=== PATIENT | female | born 1945 | race Caucasian/White ===

== ENCOUNTER 2018-10-03 13:23 | Inpatient (IN) | payer MEDICARE, OTHER ==
[2016-02-18 16:32] VITALS: Wt 117.9 kg
[~2018-10-03 13:23] MED LIST: ALB17R INH; ALB18R INH; ASP81 PO; ASPI-1441 PO; ASPI-1471 PO; ASPI-757 PO; AZI250 PO; B12/1CAP PO; CALC600T59 PO; CHOL200018 PO; EPIN5DRO OP; GUALA600 PO; HCTZ25 PO; IBUP200C74 PO; IBUP50TA PO; LISI-374 PO; LOR7.5/325 PO; MOM PO; MULT-1 PO; OLOOD OP; OXYC-865 PO; PRE20 PO; TETR15DR9 OP; TRA50 PO; TRAM-420 PO; WARF-12 PO; [UNRECOGNIZED DRUG - CODE] PO; [UNRECOGNIZED DRUG - CODE] PO
--- NOTE | 2018-10-03 13:32 | ER Report ---
History and Physical Time Seen By MD: 13:31 HPI/ROS CHIEF COMPLAINT: Shortness of breath HISTORY OF PRESENT ILLNESS: This is a 73-year-old female presents to emergency department for dyspnea. Patient states that over the last 3 days she's had i ncreased shortness of breath. She does have a history of well-controlled asthma however the last 3 days she's been using her rescue inhaler more frequently, significant shortness of breath last night and today. Patient is working hard to breathe, supraclavicular retractions, intercostal retractions, speaking in 2-3 word sentences. She denies smoking, is currently being worked up for COPD. No history of congestive heart failure that she is aware of. No fevers, but has had chills the last couple days. No nausea or vomiting. Denies chest pain. No rashes or meningismus. REVIEW OF SYSTEMS: Constitutional: No fever, no chills. Eyes: No discharge. ENT: No sore throat. Cardiovascular: No chest pain, no palpitations. Respiratory: As above. Gastrointestinal: No abdominal pain, no vomiting. Genitourinary: No hematuria. Musculoskeletal: No back pain. Skin: No rashes. Neurological: No headache. Allergies: Coded Allergies: crab (Verified Allergy, Severe, ANAPHYLAXIS, 03/02/16) Penicillins (Verified Allergy, Mild, ANAPHYLAXIS, 03/02/16) levofloxacin (Verified Allergy, Mild, HIVES, 03/02/16) Home Meds Active Scripts Aspirin (ASPIR 81) 81 Mg Tablet.dr, 81 MG PO QDAY, #30 TAB May resume when completed with the 30 days of full dose (325mg) aspirin. Prov:JUANA CALLAHAN MD 02/20/16 Lisinopril (LISINOPRIL) 40 Mg Tablet, 40 MG PO QDAY, #30 TAB DO NOT TAKE until discuss BP readings with Dr. Mcgarry in approximately one week. Check BP 2-3 times daily and keep record. Prov:JUANA CALLAHAN MD 02/20/16 Reported Medications Levothyroxine Sodium (SYNTHROID) 75 Mcg Tablet, 75 MG DAILY 10/03/18 Fluticasone/Salmeterol (ADVAIR 250-50 DISKUS) 1 Each Disk.w.dev, BID 10/03/18 Epinephrine (EPIPEN 2-FRANCHESKA) 0.3 Mg/0.3 Ml Pen.injctr 10/03/18 Atorvastatin Calcium (ATORVASTATIN CALCIUM) 10 Mg Tablet, HS 10/03/18 Hydrochlorothiazide (HYDROCHLOROTHIAZIDE) 12.5 Mg Capsule, 1 TAB PO QDAY, CAPSULE 10/03/18 Epinastine Hcl (EPINASTINE HCL) 5 Ml Drops, 5 ML OP BID instill one drop in each eye twice daily 02/17/16 Cholecalciferol (Vitamin D3) (VITAMIN D) 2,000 Unit Tablet, 2000 UNIT PO DAILY 02/12/16 Tramadol Hcl (TRAMADOL HCL) 50 Mg Tablet, 50 MG PO Q6-8H PRN for PAIN, TAB 02/12/16 Albuterol Sulfate (VENTOLIN HFA) 18 Gm Inh, 2 PUFF INH Q4-6H PRN for CONGESTION, INH 02/12/16 Discontinued Reported Medications Oxycodone Hcl/Acetaminophen (PERCOCET 5-325 MG TABLET) 1 Each Tablet, 1-2 TAB PO Q4-6H PRN for PAIN, #90 TAB 0 Refills 02/20/16 Discontinued Scripts Aspirin (ASPIRIN) 325 Mg Tablet, 325 MG PO QHS, #30 TAB Prov:JUANA CALLAHAN MD 02/20/16 Past Medical/Surgical History Patient has a past medical and surgical history of hypertension, asthma, pneumonia, colonoscopy,, disease, cholecystectomy, breast cancer, breast biopsy, postpolio syndrome and right leg, arthritis, wears glasses, hypothyroidism, knee surgery, hysterectomy, left total hip, bilateral total knee, tonsillectomy retina repair. Reviewed Nurses Notes: Yes Hx Smoking: No Smoking Status: Never Smoker Exposure to Second Hand Smoke?: No Hx Substance Use Disorder: No Hx Alcohol Use: No Constitutional Vital Sign - Last 24 Hours 10/03/18 10/03/18 10/03/18 10/03/18 13:23 13:33 13:38 13:38 Temp 98.4 Pulse ??? 82 87 Resp 30 30 B/P (MAP) 155/95 (115) 155/95 Pulse Ox 76 93 O2 Delivery Nasal Cannula 10/03/18 10/03/18 10/03/18 10/03/18 13:45 13:45 13:53 13:56 Pulse 78 85 Resp 20 22 Pulse Ox 98 97 O2 Delivery Oxy Mask O2 Flow Rate 5.0 6.0 10/03/18 10/03/18 10/03/18 10/03/18 14:08 14:23 14:28 14:43 Pulse 87 90 86 91 Resp 16 Pulse Ox 97 93 91 91 10/03/18 10/03/18 10/03/18 10/03/18 14:53 14:58 15:00 15:13 Pulse 90 90 Resp 15 19 B/P (MAP) 148/73 (98) 131/80 (97) Pulse Ox 92 83 10/03/18 10/03/18 10/03/18 10/03/18 15:28 15:30 15:43 15:58 Pulse 85 89 88 Resp 13 18 15 B/P (MAP) 139/82 (101) Pulse Ox 92 91 89 10/03/18 16:00 B/P (MAP) 142/90 (107) Physical Exam General Appearance: The patient is alert, has no immediate need for airway protection and no signs of toxicity, supra-clavicular and intercostal retractions, increased work of breathing, to 3 word sentences. Eyes: Pupils equal and round no pallor or injection. ENT, Mouth: Mucous membranes are moist. Respiratory: Supraclavicular and intercostal retractions, diminished lung sounds throughout, and expiratory wheezes in the left upper and lower lung espinoza. Cardiovascular: Regular rate and rhythm, no murmurs, clicks or rubs. Gastrointestinal: Abdomen is round, soft and non tender, no masses, bowel sounds normal. Neurological: Alert and oriented 4. Moving all extremities. Following all commands. No focal neuro deficits. Skin: Warm and dry, no rashes. Musculoskeletal: Neck is supple non tender. Extremities are nontender, nonswollen and have full range of motion. DIFFERENTIAL DIAGNOSIS: After history and physical exam differential diagnosis was considered for shortness of breath including but not limited to pulmonary infectious process, COPD, asthma, pulmonary embolus and congestive heart failure. Medical Decision Making Data Points Result Diagram: 10/03/18 1348 10/03/18 1348 Laboratory Hematology Test 10/03/18 13:48 10/03/18 16:00 Red Blood Count 4.58 M/uL (4.17-5.56) Mean Corpuscular Volume 86.2 fL (80.0-96.0) Mean Corpuscular Hemoglobin 27.7 pg (26.0-33.0) Mean Corpuscular Hemoglobin Concent 32.2 g/dL (32.0-36.0) Red Cell Distribution Width 15.3 % (11.5-14.5) Mean Platelet Volume 7.3 fL (7.2-11.1) Neutrophils (%) (Auto) 75.6 % (39.4-72.5) Lymphocytes (%) (Auto) 12.9 % (17.6-49.6) Monocytes (%) (Auto) 7.2 % (4.1-12.4) Eosinophils (%) (Auto) 3.5 % (0.4-6.7) Basophils (%) (Auto) 0.8 % (0.3-1.4) Nucleated RBC Relative Count (auto) 0.0 /100WBC Neutrophils # (Auto) 4.6 K/uL (2.0-7.4) Lymphocytes # (Auto) 0.8 K/uL (1.3-3.6) Monocytes # (Auto) 0.4 K/uL (0.3-1.0) Eosinophils # (Auto) 0.2 K/uL (0.0-0.5) Basophils # (Auto) 0.0 K/uL (0.0-0.1) Nucleated RBC Absolute Count (auto) 0.00 K/uL Sodium Level 136 mmol/L (137-145) Potassium Level 3.7 mmol/L (3.5-5.0) Chloride Level 95 mmol/L (98-107) Carbon Dioxide Level 36 mmol/L (22-31) Blood Urea Nitrogen 19 mg/dl (7-18) Creatinine 0.80 mg/dl (0.52-1.04) Glomerular Filtration Rate Calc > 60.0 Random Glucose 101 mg/dl (75-110) Calcium Level 9.5 mg/dl (8.4-10.2) Total Bilirubin 0.9 mg/dl (0.2-1.3) Aspartate Amino Transf (AST/SGOT) 47 U/L (0-35) Alanine Aminotransferase (ALT/SGPT) 38 U/L (0-56) Alkaline Phosphatase 95 U/L (0-126) Troponin I < 0.012 ng/ml B-Type Natriuretic Peptide 8 pg/ml (0-100) Total Protein 7.1 g/dl (6.3-8.2) Albumin 4.2 g/dl (3.5-5.0) Influenza Virus Type A (PCR) Negative (NEGATIVE) Influenza Virus Type B (PCR) Negative (NEGATIVE) Chemistry Test 10/03/18 13:48 10/03/18 16:00 White Blood Count 6.0 k/uL (4.5-11.0) Red Blood Count 4.58 M/uL (4.17-5.56) Hemoglobin 12.7 g/dL (12.0-16.0) Hematocrit 39.5 % (34.0-47.0) Mean Corpuscular Volume 86.2 fL (80.0-96.0) Mean Corpuscular Hemoglobin 27.7 pg (26.0-33.0) Mean Corpuscular Hemoglobin Concent 32.2 g/dL (32.0-36.0) Red Cell Distribution Width 15.3 % (11.5-14.5) Platelet Count 193 K/uL (150-450) Mean Platelet Volume 7.3 fL (7.2-11.1) Neutrophils (%) (Auto) 75.6 % (39.4-72.5) Lymphocytes (%) (Auto) 12.9 % (17.6-49.6) Monocytes (%) (Auto) 7.2 % (4.1-12.4) Eosinophils (%) (Auto) 3.5 % (0.4-6.7) Basophils (%) (Auto) 0.8 % (0.3-1.4) Nucleated RBC Relative Count (auto) 0.0 /100WBC Neutrophils # (Auto) 4.6 K/uL (2.0-7.4) Lymphocytes # (Auto) 0.8 K/uL (1.3-3.6) Monocytes # (Auto) 0.4 K/uL (0.3-1.0) Eosinophils # (Auto) 0.2 K/uL (0.0-0.5) Basophils # (Auto) 0.0 K/uL (0.0-0.1) Nucleated RBC Absolute Count (auto) 0.00 K/uL Glomerular Filtration Rate Calc > 60.0 Calcium Level 9.5 mg/dl (8.4-10.2) Total Bilirubin 0.9 mg/dl (0.2-1.3) Aspartate Amino Transf (AST/SGOT) 47 U/L (0-35) Alanine Aminotransferase (ALT/SGPT) 38 U/L (0-56) Alkaline Phosphatase 95 U/L (0-126) Troponin I < 0.012 ng/ml B-Type Natriuretic Peptide 8 pg/ml (0-100) Total Protein 7.1 g/dl (6.3-8.2) Albumin 4.2 g/dl (3.5-5.0) Influenza Virus Type A (PCR) Negative (NEGATIVE) Influenza Virus Type B (PCR) Negative (NEGATIVE) EKG/Imaging EKG Interpretation 12 lead EKG: Time of EKG 1343. Rhythm: Normal sinus rhythm, ventricular rate 77 bpm. Maddock: normal QRS: normal ST segments: No ST depression or elevation identified, inverted T-wave in lead 3 and V2. When compared to the 04/12/2014 EKG no significant changes other than inverted T wave on the current EKG in lead 3 and V1 and V2 Imaging Location: [facility] Patient: Audrey Rizzo : 1945 Visit/Account:[id number] Date of Sevice: 10/03/2018 Exam type: CHEST SINGLE AP History: Respiratory distress Comparison: 02/06/2016. Findings: Lung volumes are low. Prominent interstitial markings are noted bilaterally worst at the bases could represent an interstitial pneumonia. No focal infiltrate, pleural effusion or pneumothorax. Heart size is normal. Pulmonary arteries are enlarged, unchanged. Osseous structures are unremarkable. IMPRESSION: 1. Low lung volumes was prominent interstitial markings particularly at the bases could represent an interstitial pneumonia. Report Dictated By: Wilson Quigley MD at 10/03/2018 2:23 PM Report E-Signed By: Wilson Quigley MD at 10/03/2018 2:24 PM WSN:[email or web address] ED Course/Re-evaluation Clinical Indication for ER IV: Hydration, IV Access ED Course The patient was admitted to room. A history and physical were obtained. Differential diagnoses were considered. An IV was started. A CBC, CMP, troponin were obtained. EKG showing sinus rhythm. CBC unremarkable, chemistry showing sodium 136, Chloride 95, CO2 36, BUN 19, negative troponin, normal BNP, negative influenza. A single view chest x-ray concerning for pneumonia. Patient did receive 3 continuous DuoNeb was with significant relief of her symptoms and improved aeration. However on room air the patient's oxygen did desaturate to 77%. I did discuss the case with Dr. Mick Lora the hospitalist [facility], he is accepting the patient in the hospitalist services for community-acquired pneumonia and hypoxia. Patient was agreeable with this plan of care, admitted to the medical floor. Patient was started on antibiotics once she was admitted. 10/03/2018 3:29:28 pm I did speak with Dr. Alanna Lora the hospitalist, he will come to evaluate the patient for possible admit. Another room air trial off oxygen after 3 duo nebs, 77%. 10/03/2018 3:55:02 pm the patient has been accepted into the hospitalist services, patient will be admitted to Dr. Gonzalez for community-acquired pneumonia and hypoxia. Decision to Disposition Date: Oct 03, 2018 Decision to Disposition Time: 15:55 Depart Departure Latest Vital Signs Vital Signs Date Time Temp Pulse Resp B/P (MAP) Pulse Ox O2 Delivery O2 Flow Rate FiO2 10/03/18 16:00 142/90 (107) 10/03/18 15:58 88 15 89 10/03/18 13:56 6.0 10/03/18 13:45 Oxy Mask 10/03/18 13:38 98.4 Impression: Primary Impression: Community acquired pneumonia Additional Impressions: Asthma attack Hypoxia Condition: Improved Disposition: Admitted from ER Referrals: KAYLIE MCGARRY MD (PCP) Problem Qualifiers Primary Impression: Community acquired pneumonia Laterality: unspecified laterality Qualified Codes: J18.9 - Pneumonia, unspecified organism Additional Impressions: Asthma attack Asthma severity: moderate Asthma persistence: unspecified Qualified Codes: J45.901 - Unspecified asthma with (acute) exacerbation MIRACLE SY ASSISTANT TO THE VICE PRESIDENT-BC Oct 03, 2018 13:32
[2018-10-03] MEDS ORDERED: NS(*) 0.9% 500 ML BAG 500 ML IV ONE (13:37)
[2018-10-03] MEDS ORDERED: methylPREDNIS SUCC 125 MG/2ML IVP ONE (13:40)
[2018-10-03] MEDS ORDERED: ATOR10TA65 (13:49)
[2018-10-03] MEDS ORDERED: EPIN0.3P15 (13:49)
[2018-10-03] MEDS ORDERED: FLUT1DIS28 (13:49)
[2018-10-03] MEDS ORDERED: HYDR12.556 PO (13:49)
[2018-10-03 13:59] LABS: PLATELET COUNT, AUTOMATED 193 K/uL (150-450)
[2018-10-03] MEDS: ALBUTEROL/IPRATROPIUM 3 ML NEB NEB SCH ×2 (13:59→17:23)
--- NOTE | 2018-10-03 14:30 | RADIOLOGY IMAGING REPORT ---
[facility] PATIENT NAME: Audrey Rizzo : 1945 MR: [id number] V: [id number] EXAM DATE: ORDERING PHYSICIAN: MIRACLE SY TECHNOLOGIST: Location: [facility] Patient: Audrey Rizzo : 1945 Visit/Account:[id number] Date of Sevice: 10/03/2018 Exam type: CHEST SINGLE AP History: Respiratory distress Comparison: 02/06/2016. Findings: Lung volumes are low. Prominent interstitial markings are noted bilaterally worst at the bases could represent an interstitial pneumonia. No focal infiltrate, pleural effusion or pneumothorax. Heart size is normal. Pulmonary arteries are enlarged, unchanged. Osseous structures are unremarkable. IMPRESSION: 1. Low lung volumes was prominent interstitial markings particularly at the bases could represent an interstitial pneumonia. Report Dictated By: Wilson Quigley MD at 10/03/2018 2:23 PM Report E-Signed By: Wilson Quigley MD at 10/03/2018 2:24 PM WSN:[email or web address]
--- NOTE | 2018-10-03 14:31 | EKG ---
FACILITY: [facility] [place] PATIENT NAME: ABELARDO MACHADO : [id number] MR: [id number] V: [id number] EXAM DATE: [id number] ORDERING PHYSICIAN: MIRACLE SY TECHNOLOGIST: JUVENCIO Test Reason : SOB Blood Pressure : / mmHG Vent. Rate : 077 BPM Atrial Rate : 077 BPM P-R Int : 184 ms QRS Dur : 102 ms QT Int : 398 ms P-R-T Axes : 017 058 -03 degrees QTc Int : 450 ms Normal sinus rhythm R wave progression consistent with an old ant/sep [place] vs lead placement T inversion/flattening consistent with inf ischemia vs normal variant When compared with ECG of 12-APR-2014 05:53, ST no longer elevated in Inferior leads T wave inversion now evident in Inferior leads T wave amplitude has increased in Lateral leads Confirmed by NEHEMIAS DE OLIVEIRA ([id number]) on 10/03/2018 4:25:45 PM Referred By: DAISHA Confirmed By:NEHEMIAS DE OLIVEIRA
[2018-10-03] MEDS ORDERED: LEVO75TA68 (15:47)
--- NOTE | 2018-10-03 16:42 | History & Physical ---
History of Present Illness History of Present Illness 73yo female with a h/o asthma who came to the ER for worsening SOB. She developed chills, non-productive cough and SOB about a week ago. She usually just wears O2 at night and put herself on 2 liters daily, which helped her SOB. She used her albuterol inhaler frequently, which also helped. However, the SOB worsened. She has slept in a chair the last 3 nights. Last night, she didn't sleep well secondary to the SOB, so came to the ER. She denies n/v/diarrhea/cp. She has had some LE edema over the last couple of days. She has been out of Advair for 2 weeks. In the ER, she was given a DuoNeb and methylprednisolone and feels a bit better. History Problems: (1) Chronic leg pain Status: Chronic (2) Hyperlipemia Status: Chronic (3) Nocturnal hypoxemia Status: Chronic (4) Asthma Status: Chronic (5) Dry eyes Status: Chronic (6) Hypothyroidism Status: Chronic (7) HTN (hypertension) Status: Chronic Home Meds Active Scripts Aspirin (ASPIR 81) 81 Mg Tablet.dr, 81 MG PO QDAY, #30 TAB May resume when completed with the 30 days of full dose (325mg) aspirin. Prov:JUANA CALLAHAN MD 02/20/16 Lisinopril (LISINOPRIL) 40 Mg Tablet, 40 MG PO QDAY, #30 TAB DO NOT TAKE until discuss BP readings with Dr. Arauz in approximately one week. Check BP 2-3 times daily and keep record. Prov:JUANA CALLAHAN MD 02/20/16 Reported Medications Levothyroxine Sodium (SYNTHROID) 75 Mcg Tablet, 75 MG DAILY 10/03/18 Fluticasone/Salmeterol (ADVAIR 250-50 DISKUS) 1 Each Disk.w.dev, BID 10/03/18 Epinephrine (EPIPEN 2-FRANCHESKA) 0.3 Mg/0.3 Ml Pen.injctr 10/03/18 Atorvastatin Calcium (ATORVASTATIN CALCIUM) 10 Mg Tablet, HS 10/03/18 Hydrochlorothiazide (HYDROCHLOROTHIAZIDE) 12.5 Mg Capsule, 1 TAB PO QDAY, CAPSULE 10/03/18 Epinastine Hcl (EPINASTINE HCL) 5 Ml Drops, 5 ML OP BID instill one drop in each eye twice daily 7/12/16 Cholecalciferol (Vitamin D3) (VITAMIN D) 2,000 Unit Tablet, 2000 UNIT PO DAILY 02/12/16 Tramadol Hcl (TRAMADOL HCL) 50 Mg Tablet, 50 MG PO Q6-8H PRN for PAIN, TAB 02/12/16 Albuterol Sulfate (VENTOLIN HFA) 18 Gm Inh, 2 PUFF INH Q4-6H PRN for CONGESTION, INH 02/12/16 Discontinued Reported Medications Oxycodone Hcl/Acetaminophen (PERCOCET 5-325 MG TABLET) 1 Each Tablet, 1-2 TAB PO Q4-6H PRN for PAIN, #90 TAB 0 Refills 02/20/16 Discontinued Scripts Aspirin (ASPIRIN) 325 Mg Tablet, 325 MG PO QHS, #30 TAB Prov:JUANA CALLAHAN MD 02/20/16 Allergies: Coded Allergies: crab (Verified Allergy, Severe, ANAPHYLAXIS, 03/02/16) Penicillins (Verified Allergy, Mild, ANAPHYLAXIS, 03/02/16) levofloxacin (Verified Allergy, Mild, HIVES, 03/02/16) Patient History: FH: CABG (coronary artery bypass surgery) FATHER, FH: dementia MOTHER FH: hypertension FATHER, Other Social/Family Hx Never a smoker. Lives with her . Hx Smoking: No Smoking Status: Never Smoker Exposure to Second Hand Smoke?: No Caffeine Intake: Tea, Soda Caffeine/Cups Per Day: 2x/wk, tea occasionally Hx Alcohol Use: No Hx Substance Use Disorder: No Social Drug Use: Never Review of Systems All Systems Reviewed/Normal: Yes, Except as Noted Exam Vital Signs Vital Signs Date Time Temp Pulse Resp B/P (MAP) Pulse Ox O2 Delivery O2 Flow Rate FiO2 10/03/18 14:23 90 93 10/03/18 14:08 16 10/03/18 13:56 6.0 10/03/18 13:45 Oxy Mask 10/03/18 13:38 98.4 155/95 General Appearance: Alert, Awake, Other (mild work of breathing) Neuro: No Gross deficits Eyes: PERRLA ENT: Moist Mucous Membranes Cardiovascular: No JVD Respiratory: Other (Exp wheezes diffusely, but much upper airway wheezing during deep breathes. Moving air to about 2/3 down lungs bilaterally) GI: Abd Soft and Non-Tender Extremities: Edema (trace pitting in shins) Integumentary: No Jaundice, No Cyanosis Medical Decision Making Data Points Result Diagram: 10/03/18 1348 10/03/18 1348 Item Value Date Time B-Type Natriuretic Peptide 8 pg/ml 10/03/188 Troponin I < 0.012 ng/ml 10/03/18 1348 Aspartate Amino Transf (AST/SGOT) 47 U/L H 10/03/18 1348 Alanine Aminotransferase (ALT/SGPT) 38 U/L 10/03/18 1348 Alkaline Phosphatase 95 U/L 10/03/18 1348 Neutrophils (%) (Auto) 75.6 % H 10/03/18 1348 Lymphocytes (%) (Auto) 12.9 % L 10/03/18 1348 Monocytes (%) (Auto) 7.2 % 10/03/18 1348 Eosinophils (%) (Auto) 3.5 % 10/03/18 1348 Basophils (%) (Auto) 0.8 % 10/03/188 Nucleated RBC Relative Count (auto) 0.0 /100WBC 10/03/18 1348 EKG / Imaging EKG Interpretation Sinus rhythm. R wave progression c/w old ant/sep [place] vs lead placement. T inv/flattening c/w inf ischemia, new. Imaging CXR - 1. Low lung volumes was prominent interstitial markings particularly at the bases could represent an interstitial pneumonia. Assessment and Plan Problems: (1) Asthma attack Status: Acute Assessment & Plan: She presented with a week of cough, chills and progressive SOB. For the last 3 nights she has been sleeping in chair. She normally only wears O2 at night and is requiring an oxymask at 5-6 liters. She has a normal WBC and is afebrile. The CXR could represent an interstitial pneumonia, but was under penetrated. She is feeling better after a couple DuoNebs, methylprednisolone and O2. She will be continued on those and will add prn albuterol and Azithromycin. She will be restarted on Advair, which she has been out of for 2 weeks. Influenza testing is pending. (2) Hyperlipemia Status: Chronic Assessment & Plan: Continue chronic atorvastatin. (3) Hypothyroidism Status: Chronic Assessment & Plan: Continue chronic levothyroxine. (4) HTN (hypertension) Status: Chronic Assessment & Plan: Continue chronic lisinopril and HCTZ. (5) Chronic leg pain Status: Chronic Assessment & Plan: Continue chronic tramadol. Copies to: KAYLIE ARAUZ MD ; Venous Thromboembolism Antithrombotics Is Pt On Any Antithrombotics?: No Exam Sepsis Risk: No Definite Risk Problem Qualifiers (1) Asthma attack: Asthma severity: moderate Asthma persistence: unspecified Qualified Codes: J45.901 - Unspecified asthma with (acute) exacerbation NEHEMIAS DE OLIVEIRA MD Oct 03, 2018 16:42
[2018-10-03] MEDS: methylPREDNIS SUCC 125 MG/2ML IVP SCH (16:50)
[2018-10-03 16:52] VITALS: BP 186/95
[2018-10-03 16:57] VITALS: BP 139/71
[2018-10-03] MEDS: SALMETEROL/FLUTIC 250/50 1 INH INH SCH (17:23)
[2018-10-03] MEDS ORDERED: NS(*) 0.9% 500 ML BAG 500 ML ONE (17:50)
[2018-10-03] MEDS: AZITHROMYCIN(*) 500 MG 500 MG in NS(*) 0.9% 250 ML BAG 250 ML IVPB SCH (18:06)
[2018-10-03] MEDS: ALBUTEROL 2.5 MG/3 ML NEB NEB PRN ×2 (19:44→22:14)
[2018-10-03 19:49] VITALS: BP 129/81
[2018-10-03] MEDS: ATORVASTATIN 10 MG TAB PO SCH (20:30)
[2018-10-03] MEDS: traMADol 50 MG TAB PO PRN (20:30)
[2018-10-03] MEDS: EPINASTINE OU SCH (20:31)
[2018-10-03 23:46] VITALS: BP 131/75
[2018-10-04] MEDS: methylPREDNIS SUCC 125 MG/2ML IVP SCH ×3 (00:09→17:30)
[2018-10-04] MEDS: SALMETEROL/FLUTIC 250/50 1 INH INH SCH ×2 (05:24→17:15)
[2018-10-04] MEDS: ALBUTEROL/IPRATROPIUM 3 ML NEB NEB SCH ×3 (05:24→17:15)
[2018-10-04] MEDS: LEVOTHYROXINE SOD 0.075 MG TAB PO SCH (05:29)
[2018-10-04 05:41] LABS: PLATELET COUNT, AUTOMATED 182 K/uL (150-450)
[2018-10-04 08:03] VITALS: BP 134/77
[2018-10-04 08:49] VITALS: BP 128/77
[2018-10-04] MEDS: traMADol 50 MG TAB PO PRN ×2 (08:50→20:21)
[2018-10-04] MEDS: ENOXAPARIN 40 MG/0.4ML SYR SC SCH (08:50)
[2018-10-04] MEDS: ASPIRIN 81 MG ENTERIC COATED PO SCH (08:55)
[2018-10-04] MEDS: HYDROCHLOROTHIAZIDE 25 MG TAB PO SCH (09:00)
[2018-10-04] MEDS: EPINASTINE OU SCH ×2 (09:00→19:25)
[2018-10-04] MEDS: LISINOPRIL 20 MG TAB PO SCH (09:00)
--- NOTE | 2018-10-04 09:51 | Hospitalist Progress Note ---
Subjective Progress Notes Subjective She reports about the same - still with cough, dyspnea. Physical Exam Vital Signs Date Time Temp Pulse Resp B/P (MAP) Pulse Ox O2 Delivery O2 Flow Rate FiO2 10/04/18 08:49 128/77 (94) 10/04/18 08:03 98.1 88 14 90 Nasal Cannula 3.0 Intake and Output 10/04/18 07:00 Intake Total 740 ml Balance 740 ml Intake Oral 240 ml IV Total 500 ml # Voids 5 General Appearance: Alert, Awake Cardiovascular: Regular Rate and Rhythm Respiratory: Other (central expiratory wheeze/clearer peripheral areas) GI: Soft and Non-Tender Extremities: Warm, Perfused, Edema (trace both LE) Psych: Alert & Oriented X3 Result Diagram: 10/04/18 0501 10/04/18 0501 Assessment and Plan Problems: (1) Asthma attack Status: Acute Assessment & Plan: She presented with a week of cough, chills and progressive SOB - for the last 3 nights she had been sleeping in chair. She normally only wears O2 at night and was initially requiring 5-6 liters. She has a normal WBC and is afebrile. The CXR could represent an interstitial pneumonia, but was under penetrated. She is minimally better with DuoNeb, methylprednisolone, albuterol, O2, and Azithromycin. She has been restarted on Advair, which she has been out of for 2 weeks. Influenza testing is negative. (2) Hyperlipemia Status: Chronic Assessment & Plan: Continue chronic atorvastatin. (3) Hypothyroidism Status: Chronic Assessment & Plan: Continue chronic levothyroxine. (4) HTN (hypertension) Status: Chronic Assessment & Plan: Continue chronic lisinopril and HCTZ. (5) Chronic leg pain Status: Chronic Assessment & Plan: Continue chronic tramadol. Exam Sepsis Risk: No Definite Risk Problem Qualifiers (1) Asthma attack: Asthma severity: moderate Asthma persistence: unspecified Qualified Codes: J45.901 - Unspecified asthma with (acute) exacerbation JUANA CALLAHAN MD Oct 04, 2018 09:51
[2018-10-04 10:50] VITALS: BP 130/65
[2018-10-04] MEDS ORDERED: ACETAMINOPHEN 325 MG TAB PO PRN (13:05)
[2018-10-04] MEDS: ALBUTEROL 2.5 MG/3 ML NEB NEB PRN ×2 (14:03→22:39)
[2018-10-04] MEDS: AZITHROMYCIN(*) 500 MG 500 MG in NS(*) 0.9% 250 ML BAG 250 ML IVPB SCH (18:03)
[2018-10-04 19:27] VITALS: BP 139/80
[2018-10-04] MEDS: ATORVASTATIN 10 MG TAB PO SCH (20:21)
[2018-10-04] MEDS ORDERED: ALBU8.5H PO (20:43)
[2018-10-04] MEDS ORDERED: HYDR-2966 PO (20:43)
[2018-10-05] MEDS: methylPREDNIS SUCC 125 MG/2ML IVP SCH (00:31)
[2018-10-05] MEDS: ALBUTEROL/IPRATROPIUM 3 ML NEB NEB SCH ×2 (05:35→11:00)
[2018-10-05] MEDS: SALMETEROL/FLUTIC 250/50 1 INH INH SCH (05:35)
[2018-10-05] MEDS: LEVOTHYROXINE SOD 0.075 MG TAB PO SCH (05:48)
[2018-10-05 07:30] VITALS: BP 113/59
[2018-10-05 08:29] VITALS: BP 129/77
[2018-10-05] MEDS: EPINASTINE OU SCH (08:30)
[2018-10-05] MEDS: ASPIRIN 81 MG ENTERIC COATED PO SCH (08:31)
[2018-10-05] MEDS: HYDROCHLOROTHIAZIDE 25 MG TAB PO SCH (08:32)
[2018-10-05] MEDS: ENOXAPARIN 40 MG/0.4ML SYR SC SCH (08:32)
[2018-10-05] MEDS: LISINOPRIL 20 MG TAB PO SCH (08:32)
[2018-10-05] MEDS ORDERED: predniSONE 10 MG TAB PO SCH (09:00)
[2018-10-05] MEDS: ALBUTEROL 2.5 MG/3 ML NEB NEB PRN ×2 (09:04→14:30)
--- NOTE | 2018-10-05 11:14 | Hospitalist Progress Note ---
Subjective Progress Notes Subjective This patient was admitted for asthma. She had no acute events overnight. Patient Complains of: Cardiovascular: No: Chest Pain Respiratory: No: Shortness of Breath Physical Exam Vital Signs Date Time Temp Pulse Resp B/P (MAP) Pulse Ox O2 Delivery O2 Flow Rate FiO2 10/05/18 11:02 88 16 10/05/18 10:57 90 Nasal Cannula 2.5 10/05/18 08:29 129/77 (94) 10/05/18 07:30 98.0 Intake and Output 10/05/18 07:00 Intake Total 368 ml Balance 368 ml Intake Oral 118 ml IV Total 250 ml # Voids 7 # Bowel Movements 1 Cardiovascular: Regular Rate and Rhythm Respiratory: Other (Wheezing.) Result Diagram: 10/04/18 0501 10/04/18 0501 Assessment and Plan Problems: (1) Asthma attack Status: Acute Assessment & Plan: She was placed on nebulizers, IV steroids, and azithromycin. Her chest x-ray was negative for pneumonia. She converted to oral steroids today. (2) Hyperlipemia Status: Chronic Assessment & Plan: Continue chronic atorvastatin. (3) Hypothyroidism Status: Chronic Assessment & Plan: Continue chronic levothyroxine. (4) HTN (hypertension) Status: Chronic Assessment & Plan: Continue chronic lisinopril and HCTZ. (5) Chronic leg pain Status: Chronic Assessment & Plan: Continue chronic tramadol. Exam Sepsis Risk: No Definite Risk Problem Qualifiers (1) Asthma attack: Asthma severity: moderate Asthma persistence: unspecified Qualified Codes: J45.901 - Unspecified asthma with (acute) exacerbation KAYLIE ARREAGA DO Oct 05, 2018 11:14
--- NOTE | 2018-10-05 12:37 | Antimicrobial Stewardship ---
Antimicrobial Stewardship Empiricly appropriate: Yes (Asthma Exacerbation) Support empiric regimen: Yes (Azithromycin) Clinically stable/improving: Yes IV to PO Opportunity: Yes Determine cumulative duration: Today is Day 3 of therapy Determine standard duration: Total duration is 5 days Comment 73 yo F with a history of hypertension, asthma, pneumonia, breast cancer, postpolio syndrome and right leg, arthritis, hypothyroidism, knee surgery, hysterectomy, left total hip, bilateral total knee, tonsillectomy, retina repair who presented with dyspnea and chills. Tmax afebrile WBC wnl Influenza (-) Chest X ray: possible interstitial pneumonia Plan continue azithromycin x 5 days total, would recommend switching to oral a ntibiotics. Continue to monitor closely. Maryjane Ricardo, PharmD, BCOP MARYJANE RICARDO Oct 05, 2018 12:37
[2018-10-05] MEDS: traMADol 50 MG TAB PO PRN (14:04)
[2018-10-05] MEDS ORDERED: AZIT-18 PO (14:06)
[2018-10-05] MEDS ORDERED: PRED-1 PO (14:06)
--- NOTE | 2018-10-05 14:08 | Hospitalist Depart ---
Discharge Summary Reason for Hosp/Final Diag: (1) Asthma attack Status: Acute Hospital Course & Plan: She was placed on nebulizers, IV steroids, and azithromycin. Her chest x-ray was negative for pneumonia. She will complete a prednisone taper. (2) Hyperlipemia Status: Chronic Hospital Course & Plan: Continue chronic atorvastatin. (3) Hypothyroidism Status: Chronic Hospital Course & Plan: Continue chronic levothyroxine. (4) HTN (hypertension) Status: Chronic Hospital Course & Plan: Continue chronic lisinopril and HCTZ. (5) Chronic leg pain Status: Chronic Hospital Course & Plan: Continue chronic tramadol. Departure Latest Vital Signs Vital Signs 10/05/18 10/05/18 10/05/18 07:30 08:29 11:02 Temp 98.0 Pulse 88 Resp 16 B/P (MAP) 129/77 (94) Weight (Pounds): 260 Result Diagram: 10/04/18 0501 10/04/18 0501 Condition: Improved Discharge: Home, Self Care Discharge Instructions Home Meds Active Scripts Azithromycin 250 Mg Tab (AZITHROMYCIN 250 MG TAB) 250 Mg Tablet, 1 TAB PO QDAY, #4 TAB Prov:KAYLIE ARREAGA DO 10/05/18 Prednisone 10 Mg Tab (PREDNISONE 10 MG TAB) 10 Mg Tablet, 10 MG PO DIRECTED, #30 TAB Take 4 tab daily x 3 days, then 3 tab daily x 3 days, then 2 tab daily x 3 days, then 1 tab daily x 3 days. Prov:KAYLIE ARREAGA DO 10/05/18 Aspirin (ASPIR 81) 81 Mg Tablet.dr, 81 MG PO QDAY, #30 TAB May resume when completed with the 30 days of full dose (325mg) aspirin. Prov:JUANA CALLAHAN MD 02/20/16 Lisinopril (LISINOPRIL) 40 Mg Tablet, 40 MG PO QDAY, #30 TAB DO NOT TAKE until discuss BP readings with Dr. Arauz in approximately one week. Check BP 2-3 times daily and keep record. Prov:JUANA CALLAHAN MD 02/20/16 Reported Medications Hydrochlorothiazide (HYDROCHLOROTHIAZIDE) 25 Mg Tablet, 25 MG PO QDAY 10/04/18 Albuterol Sulfate 90 Mcg/Act (PROAIR HFA 90 MCG/ACT) 8.5 Gm Hfa.aer.ad, 2 PUFF PO Q4-6H PRN for WHEEZING 10/04/18 Levothyroxine Sodium (SYNTHROID) 75 Mcg Tablet, 75 MG DAILY 10/03/18 Fluticasone/Salmeterol (ADVAIR 250-50 DISKUS) 1 Each Disk.w.dev, BID 10/03/18 Epinephrine (EPIPEN 2-FRANCHESKA) 0.3 Mg/0.3 Ml Pen.injctr 10/03/18 Atorvastatin Calcium (ATORVASTATIN CALCIUM) 10 Mg Tablet, HS 10/03/18 Epinastine Hcl (EPINASTINE HCL) 5 Ml Drops, 5 ML OP BID instill one drop in each eye twice daily 02/17/16 Cholecalciferol (Vitamin D3) (VITAMIN D) 2,000 Unit Tablet, 2000 UNIT PO DAILY 02/12/16 Tramadol Hcl (TRAMADOL HCL) 50 Mg Tablet, 50 MG PO Q6-8H PRN for PAIN, TAB 02/12/16 Discontinued Reported Medications Hydrochlorothiazide (HYDROCHLOROTHIAZIDE) 12.5 Mg Capsule, 1 TAB PO QDAY, CAPSULE 10/03/18 Albuterol Sulfate (VENTOLIN HFA) 18 Gm Inh, 2 PUFF INH Q4-6H PRN for CONGESTION, INH 02/12/16 Oxycodone Hcl/Acetaminophen (PERCOCET 5-325 MG TABLET) 1 Each Tablet, 1-2 TAB PO Q4-6H PRN for PAIN, #90 TAB 0 Refills 02/20/16 Discontinued Scripts Aspirin (ASPIRIN) 325 Mg Tablet, 325 MG PO QHS, #30 TAB Prov:JUANA CALLAHAN MD 02/20/16 Diet: Regular Activity: As Tolerated Copies to: KAYLIE ARAUZ MD ; Venous Thromboembolism Antithrombotics Is Pt On Any Antithrombotics?: No Problem Qualifiers (1) Asthma attack: Asthma severity: moderate Asthma persistence: unspecified Qualified Codes: J45.901 - Unspecified asthma with (acute) exacerbation KAYLIE ARREAGA DO Oct 05, 2018 14:08
[2018-10-05] MEDS ORDERED: INFLUENZA VIRUS VAC 0.5ML SYR IM ONLY ONE (16:05)
== END 2018-10-05 15:50 | disposition home or self-care (01) | DRG 202 ==
LOC: ER 13:34 → MED 16:11
PROVIDERS: ADMIT Internal Medicine; ATTEND Internal Medicine
DX: J45.901 Unspecified asthma with (acute) exacerbation (principal); J18.9 Pneumonia, unspecified organism; I10 Essential (primary) hypertension; G89.29 Other chronic pain; G14 Postpolio syndrome; R09.02 Hypoxemia; E78.5 Hyperlipidemia, unspecified; E03.9 Hypothyroidism, unspecified; Z96.653 Presence of artificial knee joint, bilateral; G47.34 Idiopathic sleep related nonobstructive alveolar hypoventilation; Z88.0 Allergy status to penicillin; Z90.49 Acquired absence of other specified parts of digestive tract; Z85.3 Personal history of malignant neoplasm of breast; Z90.710 Acquired absence of both cervix and uterus
CPT/HCPCS: 36415; 71045; 82040; 82247; 82310; 82374; 82435; 82565; 82947; 83880; 84075; 84132; 84155; 84295; 84450; 84460; 84484; 84520; 85025; 87502; 93005; 94640; 96361; 96374; 99285; J0456; J1650; J2930; J7040; J7050; J7512; J7613

== ENCOUNTER 2018-12-14 07:59 | Emergency (ER) | payer MEDICARE, OTHER ==
[2016-02-18 16:32] VITALS: Wt 117.9 kg
[~2018-12-14 07:59] MED LIST changes: +ALBU8.5H PO; +ATOR10TA65; +AZIT-18 PO; +EPIN0.3P15; +FLUT1DIS28; +HYDR-2966 PO; +HYDR12.556 PO; +LEVO75TA68; +PRED-1 PO
--- NOTE | 2018-12-14 08:03 | ER Report ---
History and Physical Time Seen By MD: 08:02 HPI/ROS CHIEF COMPLAINT: Fall onto right shoulder HISTORY OF PRESENT ILLNESS: Patient is a 73-year-old female here status post mechanical fall onto her right side with complaints of right shoulder pain. Patient arrived with a right shoulder sling in place and patient is neurovascularly intact in the distal extremity with good capillary refill less than 3 seconds. Patient does have significant pain with range of motion at time of evaluation. She denies chest pain, pain with palpation of the chest, abdominal pain, nausea, vomiting. Patient does have audible wheezing and reportedly was unable to take her pulmonary treatments as she was going to take these medications after returning from the bathroom which she fell prior to. Patient denies head or neck pain, loss of consciousness. REVIEW OF SYSTEMS: Constitutional: No fever, no chills. Eyes: No discharge. ENT: No sore throat. Cardiovascular: No chest pain, no palpitations. Respiratory: No cough, + shortness of breath. Gastrointestinal: No abdominal pain, no vomiting. Genitourinary: No hematuria. Musculoskeletal: + right shoulder pain, proximal humerus pain Skin: No rashes. Neurological: NV intact in distal extremity Allergies: Coded Allergies: crab (Verified Allergy, Severe, ANAPHYLAXIS, 12/14/18) Penicillins (Verified Allergy, Mild, ANAPHYLAXIS, 12/14/18) levofloxacin (Verified Allergy, Mild, HIVES, 12/14/18) Home Meds Active Scripts Amoxicillin/Pot Clav 875-125 Mg Tab (AUGMENTIN 875-125 TABLET) 1 Each Tablet, 1 TAB PO Q12H for 7 Days, #14 TAB Prov:JEFF ASHTON DO 12/14/18 Aspirin (ASPIR 81) 81 Mg Tablet.dr, 81 MG PO QDAY, #30 TAB May resume when completed with the 30 days of full dose (325mg) aspirin. Prov:JUANA CALLAHAN MD 02/20/16 Lisinopril (LISINOPRIL) 40 Mg Tablet, 40 MG PO QDAY, #30 TAB DO NOT TAKE until discuss BP readings with Dr. Mcgarry in approximately one week. Check BP 2-3 times daily and keep record. Prov:JUANA CALLAHAN MD 02/20/16 Reported Medications Hydrochlorothiazide (HYDROCHLOROTHIAZIDE) 25 Mg Tablet, 25 MG PO QDAY 10/04/18 Albuterol Sulfate 90 Mcg/Act (PROAIR HFA 90 MCG/ACT) 8.5 Gm Hfa.aer.ad, 2 PUFF PO Q4-6H PRN for WHEEZING 10/04/18 Levothyroxine Sodium (SYNTHROID) 75 Mcg Tablet, 75 MG DAILY 10/03/18 Fluticasone/Salmeterol (ADVAIR 250-50 DISKUS) 1 Each Disk.w.dev, BID 10/03/18 Epinephrine (EPIPEN 2-FRANCHESKA) 0.3 Mg/0.3 Ml Pen.injctr 10/03/18 Atorvastatin Calcium (ATORVASTATIN CALCIUM) 10 Mg Tablet, HS 10/03/18 Epinastine Hcl (EPINASTINE HCL) 5 Ml Drops, 5 ML OP BID instill one drop in each eye twice daily 02/17/16 Cholecalciferol (Vitamin D3) (VITAMIN D) 2,000 Unit Tablet, 2000 UNIT PO DAILY 02/12/16 Tramadol Hcl (TRAMADOL HCL) 50 Mg Tablet, 50 MG PO Q6-8H PRN for PAIN, TAB 02/12/16 Discontinued Scripts Azithromycin 250 Mg Tab (AZITHROMYCIN 250 MG TAB) 250 Mg Tablet, 1 TAB PO QDAY, #4 TAB Prov:KAYLIE ARREAGA DO 10/05/18 Prednisone 10 Mg Tab (PREDNISONE 10 MG TAB) 10 Mg Tablet, 10 MG PO DIRECTED, #30 TAB Take 4 tab daily x 3 days, then 3 tab daily x 3 days, then 2 tab daily x 3 days, then 1 tab daily x 3 days. Prov:KAYLIE ARREAGA DO 10/05/18 Hx Smoking: No Smoking Status: Never Smoker Exposure to Second Hand Smoke?: No Hx Substance Use Disorder: No Hx Alcohol Use: No Constitutional Vital Sign - Last 24 Hours 12/14/18 12/14/18 12/14/18 12/14/18 08:05 08:10 08:11 08:30 Temp 98.0 Pulse 104 85 Resp 12 14 B/P (MAP) 114/73 114/73 (87) 111/49 (69) Pulse Ox 85 97 O2 Delivery Nasal Cannula O2 Flow Rate 11.0 12/14/18 12/14/18 12/14/18 12/14/18 08:32 08:32 08:38 09:00 Pulse 82 94 Resp 24 22 B/P (MAP) 103/42 (62) Pulse Ox 92 O2 Delivery Oxy Mask O2 Flow Rate 10.0 12/14/18 12/14/18 12/14/18 12/14/18 09:30 09:55 10:00 10:00 Pulse 81 85 83 B/P (MAP) 93/52 (66) 91/47 (62) 111/54 (73) Pulse Ox 91 93 93 12/14/18 10:30 Pulse Ox 96 Physical Exam General Appearance: The patient is alert, has no immediate need for airway protection and no signs of toxicity. Uncomfortable appearing Eyes: Pupils equal and round no pallor or injection. ENT, Mouth: Mucous membranes are moist. Respiratory: There are no retractions, lungs are clear to auscultation. Cardiovascular: Regular rate and rhythm. [ ] Gastrointestinal: Abdomen is soft and non tender, no masses, bowel sounds normal. Neurological: NV intact in distal upper extremity Skin: Warm and dry, no rashes. Musculoskeletal: Neck is supple non tender. + Tenderness on palpation of the right shoulder, proximal humerus, pain with range of motion testing of the right shoulder, capillary refill less than 3 seconds in the distal extremity with good motor strength and deltoid sensation DIFFERENTIAL DIAGNOSIS: After history and physical exam differential diagnosis was considered for fracture, contusion, sprain, dislocation Medical Decision Making EKG/Imaging Imaging PATIENT NAME: Audrey Rizzo : 1945 MR: [id number] V: [id number] EXAM DATE: ORDERING PHYSICIAN: JEFF ASHTON TECHNOLOGIST: Location: [facility] - [place] Patient: Audrey Rizzo : 1945 Visit/Account:[id number] Date of [facility]: 12/14/2018 Right forearm Indication: Fall Comparison: None available Findings: 2 views of the forearm demonstrate anatomic alignment without acute fracture. 9 calcifications are seen dorsally over the forearm. Well-corticated ossific density seen distal to the ulnar styloid process which may be from an old injury. Moderate to severe degenerative changes are seen at the triscaphe joint and first CMC joint. IMPRESSION: 1.No acute osseous abnormality right forearm PATIENT NAME: Audrey Rizzo : 1945 MR: [id number] V: [id number] EXAM DATE: ORDERING PHYSICIAN: JEFF ASHTON TECHNOLOGIST: Location: [facility] - [place] Patient: Audrey Rizzo : 1945 Visit/Account:[id number] Date of [place]: 12/14/2018 2 views right humerus Indication: Fall Comparison: None Available FINDINGS: 2 views of the right humerus are submitted demonstrating anatomic alignment without fracture or destructive bony finding. There is no focal soft tissue abnormality. No evidence of radiopaque foreign body. IMPRESSION: No acute osseous abnormality of the right humerus PATIENT NAME: Audrey Rizzo : 1945 MR: [id number] V: [id number] EXAM DATE: ORDERING PHYSICIAN: JEFF ASHTON TECHNOLOGIST: Location: [facility] [place] Patient: Audrey Rizzo : 1945 Visit/Account:[id number] Date of [place]: 12/14/2018 3 views right shoulder Indication: Fall Comparison: Examination the chest October 03, 2018 Findings: 3 views of the right shoulder are submitted. Alignment is anatomic without fracture or acute destructive osseous finding. Limited views of the right upper lung zone are unremarkable. Visualized right acromioclavicular joint is unremarkable. IMPRESSION: 1. No acute osseous abnormality right shoulder. ED Course/Re-evaluation ED Course Patient is a 73-year-old female here with complaints of right shoulder pain status post fall. Patient was given Percocet, DuoNeb with moderate relief of symptoms. Patient was unable to take her albuterol home pulmonary treatment because she had fallen prior to administering her morning dosage. X-ray imaging showed no acute fracture of the right upper extremity. Patient remained neurovascularly intact throughout examination. Recommend close PCP follow-up, return precautions provided. Recommend keeping sling in place. Patient also complained of thick green nasal discharge and sinus pressure consistent with a sinus infection. Patient was given prescription for Augmentin. Patient does have a history of penicillin allergy however she reports having taken Augmentin previously without allergic reaction. Precautions provided. Decision to Disposition Date: December 14, 2018 Decision to Disposition Time: 10:21 Depart Departure Latest Vital Signs Vital Signs Date Time Temp Pulse Resp B/P (MAP) Pulse Ox O2 Delivery O2 Flow Rate FiO2 5/9/19 10:30 96 12/14/18 10:00 83 12/14/18 10:00 111/54 (73) 12/14/18 08:38 22 12/14/18 08:32 Oxy Mask 10.0 12/14/18 08:10 98.0 Impression: Primary Impression: Shoulder contusion Condition: Improved Disposition: HOME OR SELF-CARE Referrals: KAYLIE MCGARRY MD (PCP) New Scripts Amoxicillin/Pot Clav 875-125 Mg Tab (AUGMENTIN 875-125 TABLET) 1 Each Tablet 1 TAB PO Q12H for 7 Days, #14 TAB Prov: JEFF ASHTON DO 12/14/18 Patient Instructions: Contusion in Adults (ED), Sinusitis (ED) Additional Instructions: Please continue your home pain medications as prescribed. Please keep your sling in place. Please follow-up with your family doctor in the next 24-48 hours. If your shoulder pain persists, consider following up with orthopedics in one week. Please return promptly if you develop muscle weakness, numbness, worsening pain, inability to move your shoulder. Please take one tablet of Augmentin twice daily for 7 days for treatment of sinus infection. JEFF ASHTON DO December 14, 2018 08:03
[2018-12-14] MEDS ORDERED: ALBUTEROL/IPRATROPIUM 3 ML NEB NEB ONE (08:30)
[2018-12-14] MEDS ORDERED: oxyCODON/ACET (*)5/325MG (CII) 1 TAB TAB PO ONE (08:30)
--- NOTE | 2018-12-14 09:26 | RADIOLOGY IMAGING REPORT ---
FACILITY: [facility] - [place] PATIENT NAME: Audrey Rizzo : 1945 MR: [id number] V: [id number] EXAM DATE: ORDERING PHYSICIAN: JEFF ASHTON TECHNOLOGIST: Location: [facility] - [place] Patient: Audrey Rizzo : 1945 Visit/Account:[id number] Date of [place]: 12/14/2018 3 views right shoulder Indication: Fall Comparison: Examination the chest October 03, 2018 Findings: 3 views of the right shoulder are submitted. Alignment is anatomic without fracture or acute destruct celso osseous finding. Limited views of the right upper lung zone are unremarkable. Visualized right acromioclavicular joint is unremarkable. IMPRESSION: 1. No acute osseous abnormality right shoulder. Report Dictated By: Bharath Wilson MD at 12/14/2018 9:22 AM Report E-Signed By: Bharath Wilson MD at 12/14/2018 9:22 AM WSN:[id number]
--- NOTE | 2018-12-14 09:27 | RADIOLOGY IMAGING REPORT ---
FACILITY: [facility] PATIENT NAME: Audrey Rizzo : 1945 MR: [id number] V: [id number] EXAM DATE: ORDERING PHYSICIAN: JEFF ASHTON TECHNOLOGIST: Location: [facility] - [place] Patient: Audrey Rizzo : 1945 Visit/Account:[id number] Date of Sevice: 12/14/2018 2 views right humerus Indication: Fall Comparison: None Available FINDINGS: 2 views of the right humerus are submitted demonstrating anatomic alignment without fracture or destr uctive bony finding. There is no focal soft tissue abnormality. No evidence of radiopaque foreign body. IMPRESSION: No acute osseous abnormality of the right humerus Report Dictated By: Bharath Wilson MD at 12/14/2018 9:23 AM Report E-Signed By: Bharath Wilson MD at 12/14/2018 9:23 AM WSN:[id number]
--- NOTE | 2018-12-14 09:29 | RADIOLOGY IMAGING REPORT ---
FACILITY[place] [facility] [place] PATIENT NAME: Audrey Rizzo : 1945 MR: [id number] V: [id number] EXAM DATE: ORDERING PHYSICIAN: JEFF ASHTON TECHNOLOGIST: [place] [facility] [place] Audrey Rizzo : 1945 Visit/Account:[id number] Date of Sev[place]: 12/14/2018 Right forearm Indication: Fall Comparison: None available Findings: 2 views of the forearm demonstrate anatomic alignment without acute fracture. 9 calcifications are se en dorsally over the forearm. Well-corticated ossific density seen distal to the ulnar styloid process which may be from an old inj ury. Moderate to severe degenerative changes are seen at the triscaphe joint and first CMC joint. IMPRESSION: 1.No acute osseous abnormality right forearm Report Dictated By: Bharath Wilson MD at 12/14/2018 9:23 AM Report E-Signed By: Bharath Wilson MD at 12/14/2018 9:24 AM WSN:[id number]
[2018-12-14 10:00] VITALS: BP 111/54
[2018-12-14] MEDS ORDERED: AMOX-559 PO (10:23)
--- NOTE | 2018-12-15 16:07 | EKG ---
FACILITY: [facility] PATIENT NAME: ABELARDO MACHADO : [id number] MR: [id number] V: [id number] EXAM DATE: ORDERING PHYSICIAN: JEFF ASHTON TECHNOLOGIST: EVIE Shepherd Reason : Blood Pressure : / mmHG Vent. Rate : 084 BPM Atrial Rate : 084 BPM P-R Int : 188 ms QRS Dur : 116 ms QT Int : 384 ms P-R-T Axes : 048 013 052 degrees QTc Int : 453 ms Normal sinus rhythm No ST-T abnormalities R wave progression consistent with an old ant/sep TX vs lead placement When compared with ECG of 03-OCT-2018 13:43, T wave inversion no longer evident in Inferior leads Confirmed by NEHEMIAS DE OLIVEIRA ([id number]) on 12/15/2018 4:12:55 PM Referred By: DAISHA Confirmed By:NEHEMIAS DE OLIVEIRA
== END 2018-12-14 10:48 | disposition home or self-care (01) ==
LOC: ER 08:07
DX: S40.011A Contusion of right shoulder, initial encounter (principal); R06.02 Shortness of breath
CPT/HCPCS: 73030; 73060; 73090; 93005; 94640; 99284; A9270; J7620